=== PATIENT | male | born 1985 | race Caucasian/White ===

== ENCOUNTER 2019-10-31 05:50 | Day surgery (SDC) | payer OTHER ==
[2019-10-27 12:12] LABS: BASOPHILS 0.2 % (0-2); EOSINOPHILS 1.6 % (0-7); HEMATOCRIT 42.3 % (42.0-54.0); HEMOGLOBIN 15.4 g/dL (13.5-17.5); IMMATURE GRANULOCYTES 0.2 % (0-5); MCH 31.4 pg (26.0-34.0); MCHC 36.4 g/dL (31.0-37.0); MCV 86.3 fL (80.0-100.0); MEAN PLATELET VOLUME 9.9 fL (7.4-10.4); MONOCYTES 5.9 % (2-11); NEUTROPHILS 53.1 % (40-80); PLATELET COUNT 202 10x3/uL (130-400); RDW 12.2 % (11.5-14.5); WBC 4.4 10x3/uL (4.8-10.8)
[2019-10-27 12:20] LABS: CALC OSMOLALITY 281 mosm/kg (275-300); CALCIUM 8.9 mg/dL (8.5-10.1); CARBON DIOXIDE 27.5 mmol/L (21.0-32.0); CHLORIDE - SERUM 106 mmol/L (98-107); CREATININE - SERUM 1.1 mg/dL (0.6-1.3); GLUCOSE 119 mg/dL (74-106); POTASSIUM - SERUM 3.6 mmol/L (3.5-5.1); SODIUM 140 mmol/L (136-145); UREA NITROGEN 17 mg/dL (7-18); eGFR NON AFRICAN AMERICAN 81 mL/min (90-120)
[~2019-10-31] VITALS: Ht 170.2 cm; Wt 94.8 kg
--- NOTE | ~2019-10-31 | OP ---
PATIENT NAME: JANE NAIK MEDICAL RECORD: [id number] :84 LOCATION:D[facility]OPS ADMISSION DATE: SURGEON: PEPE BILL MD DATE OF OPERATION: 10/31/2019 PREOPERATIVE DIAGNOSES: 1. Umbilical hernia. 2. Asthma. 3. Gastroesophageal reflux disease. POSTOPERATIVE DIAGNOSES: 1. Umbilical hernia. 2. Asthma. 3. Gastroesophageal reflux disease. PROCEDURE: Umbilical hernia repair. SURGEON: Pepe Bill MD REPORT OF PROCEDURE: The patient's abdomen was prepped and draped in sterile fashion. A semicircular incision was made on the inferior aspect of the umbilicus. Electrocautery was used to dissect through the subcutaneous tissues and we came around a large fat-containing hernia sac. Once we had this freed up from the undersurface of the umbilicus, then we were able to take down the hernia sac at the fascial edges. The hernia sac was removed and we were able to reduce the hernia contents back into the abdominal cavity. The hernia defect was a little over a centimeter in greatest diameter. We then freed up the fascial edges until we had a good viable tissue. Once we did this, we were able to penetrate the abdominal cavity and I was able to feel around to make sure there was no sign of any other hernia defects. We freed up the fascia anteriorly using electrocautery and then reapproximated the fascial edges transversely using interrupted 0 Prolenes times 5. There was good approximation of the tissue and there did not appear to be any major tension. There was no sign of any active bleeding. We irrigated out the wound with normal saline. The umbilicus was tacked down to the fascia using an interrupted 3-0 Vicryl and the subcutaneous tissues were reapproximated with interrupted 3-0 Vicryl. A 10 mL of 0.25% Marcaine plain was infused into the surrounding tissues and the skin incision was closed with running subcutaneous 5-0 Monocryl. COMPLICATIONS: None. CONDITION: Stable. ANESTHESIA: General endotracheal and local. BLOOD LOSS: Minimal. TRANSINT:[id number] Voice Confirmation ID: [id number] DOCUMENT ID: [id number] OPERATIVE REPORT [id number] JANE NAIK PEPE BILL MD CC: ELICEO SIN MD [id number] DICTATION DATE: 10/31/19841 AUTOMOBILE RACER: 10/31/19927 [facility] [address] [place] [address]
[2019-10-31 06:48] VITALS: BP 131/87; Ht 170.2 cm; Wt 94.8 kg
[2019-10-31] MEDS ORDERED: HYDROCODON-ACE1 EA10 PO (08:36)
--- NOTE | 2019-10-31 09:32 | NUR ---
0925 ASSISSTED UP TO BR VOIDS LG AMT. RETURNED TO BED O2 SAT 83% PLACED BACK ON O2 AT 2L QUICKLY RETURNED TO 96% WITH BREATHING DEEPLY.
--- NOTE | 2019-10-31 10:17 | NUR ---
1015 RX. GIVEN TO FRIEND TO TAKE AND GET FILLED
== END 2019-10-31 10:55 | disposition home or self-care (01) ==
LOC: D.OPS 05:50 → D.PAN 07:30 → D.OPS 07:30
PROVIDERS: ATTEND Surgery
DX: K42.9 Umbilical hernia without obstruction or gangrene (principal); J45.909 Unspecified asthma, uncomplicated; K21.9 Gastro-esophageal reflux disease without esophagitis